=== PATIENT | male | born 1980 | race Caucasian/White ===

== ENCOUNTER 2019-03-18 19:15 | Emergency (ER) | payer OTHER ==
[~2019-03-18] VITALS: Ht 177.8 cm; Wt 90.7 kg
[~2019-03-18 19:15] MED LIST: CIPRO500 MG PO
[2019-03-18] MEDS ORDERED: ACYCLOVIR 400400 MG PO (19:42)
[2019-03-18 20:00] VITALS: BP 155/104
== END 2019-03-18 20:01 | disposition home or self-care (01) ==
LOC: M.ERS 19:15
DX: A60.02 Herpesviral infection of other male genital organs (principal)